=== PATIENT | male | born 1965 | race Caucasian/White ===

== ENCOUNTER 2020-10-30 17:53 | Outpatient (CLI) | payer OTHER | END 2020-10-30 17:54 | disposition critical access hospital (66) | LOC: EMS 17:53 | DX: R56.9 Unspecified convulsions (principal) | CPT/HCPCS: A0425; A0429 ==

== ENCOUNTER 2020-10-30 18:12 | Emergency (ER) | payer OTHER ==
[2020-10-30 19:01] LABS: BASOPHILS % (AUTO) 0.6 %; EOSINOPHILS % (AUTO) 0.6 %; HCT - HEMATOCRIT 38.6 % (42.0-52.0); HGB - HEMOGLOBIN 12.8 g/dL (14.0-18.0); LYMPHOCYTES # (AUTO) 1.4 10^3/uL (1.5-3.5); LYMPHOCYTES % (AUTO) 20.4 %; MEAN CORPUSCULAR HEMOGLOBIN 33.1 pg (27.0-31.0); MEAN CORPUSCULAR HGB CONC 33.2 g/dL (32.0-36.0); MEAN CORPUSCULAR VOLUME 99.7 fL (80.0-94.0); MONOCYTES # (AUTO) 0.7 10^3/uL (0.0-1.0); MONOCYTES % (AUTO) 10.1 %; NEUTROPHILS # (AUTO) 4.5 10^3/uL (1.5-6.6); PLT - PLATELET COUNT 233 10^3/uL (130-450); RED BLOOD COUNT 3.87 10^6/uL (4.70-6.10); RED CELL DISTRIBUTION WIDTH 12.3 % (12.0-15.0); WHITE BLOOD COUNT 6.7 x10^3/uL (4.8-10.8)
--- NOTE | 2020-10-30 19:13 | ED Physician Documentation ---
History of Present Illness - Stated complaint Stated Complaint: SZ - Chief complaint Chief Complaint: Neuro - History obtained from History obtained from: Patient, Family, EMS - History of Present Illness Timing: Today Pain level max: 0 Pain level now: 0 - Additonal information Additional information: 55-year-old male presents to the emergency department with his family after having a seizure today. Lasted 1 to 2 minutes. He was confused for about 20 minutes after the event. Does have a longstanding history of alcoholism, last drink was over 24 hours ago. Has not had seizures before. No recent trauma. Nothing makes it better or worse. Currently feels normal. Review of Systems Ten Systems: 10 systems reviewed and negative Constitutional: denies: Fever, Chills Ears: denies: Ear pain Nose: denies: Rhinorrhea / runny nose, Congestion Respiratory: denies: Cough, Wheezing GI: denies: Nausea, Vomiting, Diarrhea Skin: denies: Rash Musculoskeletal: denies: Neck pain, Back pain Neurologic: reports: Seizure. denies: Focal weakness, Numbness, Headache, Head injury, LOC PD PAST MEDICAL HISTORY - Past Medical History Cardiovascular: Hypertension Respiratory: None Neuro: None Endocrine/Autoimmune: None GI: GERD : None HEENT: Chronic vision loss Psych: None Derm: None - Past Surgical History Past Surgical History: No - Present Medications Home Medications: Ambulatory Orders Medication Instructions Recorded Confirmed No Known Home Medications 10/30/20 10/30/20 - Allergies Allergies/Adverse Reactions: Allergies Allergy/AdvReac Type Severity Reaction Status Date / Time penicillin G Allergy Unknown Verified 10/30/20 18:22 Sulfa (Sulfonamide Allergy Unknown Verified 10/30/20 18:22 Antibiotics) - Social History Does the pt smoke?: No Smoking Status: Never smoker PD ED PE NORMAL - Vitals Vital signs reviewed: Yes - General General: Alert and oriented X 3, No acute distress, Well developed/nourished - HEENT HEENT: Atraumatic, PERRL, EOMI, Ears normal, Moist mucous membranes, Pharynx benign, Dentition benign, Other (No tongue biting no lacerations) - Neck Neck: Supple, no meningeal sign, No bony TTP - Cardiac Cardiac: RRR, Strong equal pulses - Respiratory Respiratory: No respiratory distress, Clear bilaterally - Abdomen Abdomen: Soft, Non tender, Non distended - Back Back: No spinal TTP - Derm Derm: Warm and dry - Extremities Extremities: Normal ROM s pain, No edema, No calf tenderness / cord - Neuro Neuro: Alert and oriented X 3, 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7 Eos # (Auto) 0.0 Baso # (Auto) 0.0 Absolute Nucleated RBC 0.00 Nucleated RBC % 0.0 Sodium 134 L Potassium 3.5 Chloride 97 L Carbon Dioxide 26 Anion Gap 11.0 BUN 22 H Creatinine 0.9 Estimated GFR (MDRD) 88 L Glucose 114 H Calcium 9.3 Total Bilirubin 0.6 AST 39 ALT 36 Alkaline Phosphatase 44 Total Protein 7.2 Albumin 4.3 Globulin 2.9 Albumin/Globulin Ratio 1.5 Lipase 25 TSH 3.38 Urine Color Urine Clarity Urine pH Ur Specific Neche Urine Protein Urine Glucose (UA) Urine Ketones Urine Occult Blood Urine Nitrite Urine Bilirubin Urine Urobilinogen Ur Leukocyte Esterase Ur Microscopic Review Urine Culture Comments Salicylates < 6.0 Urine Opiates Screen Ur Oxycodone Screen Urine Methadone Screen Ur Propoxyphene Screen Acetaminophen < 10 L Ur Barbiturates Screen Ur Tricyclics Screen Ur Phencyclidine Scrn Ur Amphetamine Screen U Methamphetamines Scrn U Benzodiazepines Scrn Urine Cocaine Screen U Cannabinoids Screen Ethyl Alcohol < 5.0 10/30/20 19:21 WBC RBC Hgb Hct MCV MCH MCHC RDW Plt Count MPV Neut # (Auto) Lymph # (Auto) Letcher # (Auto) Eos # (Auto) Baso # (Auto) Absolute Nucleated RBC Nucleated RBC % Sodium Potassium Chloride Carbon Dioxide Anion Gap BUN Creatinine Estimated GFR (MDRD) Glucose Calcium Total Bilirubin AST ALT Alkaline Phosphatase Total Protein Albumin Globulin Albumin/Globulin Ratio Lipase TSH Urine Color YELLOW Urine Clarity CLEAR Urine pH 6.5 Ur Specific Neche 1.020 Urine Protein TRACE Urine Glucose (UA) NEGATIVE Urine Ketones NEGATIVE Urine Occult Blood NEGATIVE Urine Nitrite NEGATIVE Urine Bilirubin NEGATIVE Urine Urobilinogen 0.2 (NORMAL) Ur Leukocyte Esterase NEGATIVE Ur Microscopic Review NOT INDICATED Urine Culture Comments NOT INDICATED Salicylates Urine Opiates Screen NEGATIVE Ur Oxycodone Screen NEGATIVE Urine Methadone Screen NEGATIVE Ur Propoxyphene Screen NEGATIVE Acetaminophen Ur Barbiturates Screen NEGATIVE Ur Tricyclics Screen NEGATIVE Ur Phencyclidine Scrn NEGATIVE Ur Amphetamine Screen NEGATIVE U Methamphetamines Scrn NEGATIVE U Benzodiazepines Scrn NEGATIVE Urine Cocaine Screen NEGATIVE U Cannabinoids Screen NEGATIVE Ethyl Alcohol - Rads (name of study) Head CT Radiology: Prelim report reviewed, EMP read contemporaneously, See rad report (No acute intracranial abnormality) PD MEDICAL DECISION MAKING - ED course Complexity details: reviewed results, re-evaluated patient, considered differential, d/w patient, d/w family ED course: 55-year-old male with a seizure today. Possible alcohol withdrawal related? No acute findings on laboratory testing, EKG or head CT. Recommend that he follow- up with his doctor for MRI and EEG. Patient does not have any injuries today. Patient and family counseled regarding signs and symptoms for which I believe and urgent re-evaluation would be necessary. Patient with good understanding of and agreement to plan and is comfortable going home at this time This document was made in part using voice recognition software. While efforts are made to proofread this document, sound alike and grammatical errors may occur. Departure - Departure Disposition: 01 Home, Self Care Clinical Impression: Seizure Condition: Good Instructions: ED Seizure New Onset Unk Cause Follow-Up: your,doctor in 1 week [Other] Comments: You should follow-up with your doctor next week for further care. This could be an alcohol withdrawal seizure. Please return if he worsens. He should have an MRI with his doctor next week as well as an EEG. Do not drive or operate heavy machinery until cleared by your doctor. You should also avoid swimming pools and baths. Discharge Date/Time: 10/30/20 20:33
--- NOTE | 2020-10-30 19:16 | CT Report ---
PROCEDURE: HEAD WO INDICATIONS: new onset seizure TECHNIQUE: Noncontrast 4.5 mm thick angled axial sections acquired from the foramen magnum to the vertex. For r adiation dose reduction, the following was used: automated exposure control, adjustment of mA and/or kV according to patient size. COMPARISON: None. FINDINGS: Image quality: Excellent. CSF spaces: Basal cisterns are patent. No extra-axial fluid collections. Ventricles are normal in size and shape. Brain: No midline shift. No intracranial masses or hemorrhage. Leonard-white matter interface is norm al. Skull and face: Calvarium and visualized facial bones are intact, without suspicious lesions. Sinuses: Visualized sinuses and mastoids are clear. IMPRESSION: No acute intracranial disease process. Reviewed by: Samantha Matthew MD, PhD on 10/30/2020 7:15 PM PDT Approved by: Samantha Matthew MD, PhD on 10/30/2020 7:15 PM PDT Station ID: [id number]
[2020-10-30 19:19] LABS: ACETAMINOPHEN < 10 ug/mL (10-30); ALBUMIN 4.3 g/dL (3.2-5.5); ALBUMIN/GLOBULIN RATIO 1.5 (1.0-2.2); ALKALINE PHOSPHATASE 44 IU/L (42-121); ALT ALANINE AMINOTRANSFERASE 36 IU/L (10-60); AST ASPARTATE AMINOTRANSFERASE 39 IU/L (10-42); BILIRUBIN,TOTAL 0.6 mg/dL (0.2-1.0); BUN - BLOOD UREA NITROGEN 22 mg/dL (6-20); CALCIUM 9.3 mg/dL (8.5-10.3); CARBON DIOXIDE - CO2 26 mmol/L (21-32); CHLORIDE 97 mmol/L (101-111); CREATININE 0.9 mg/dL (0.6-1.2); ETOH - ETHANOL < 5.0 mg/dL; GFR - MDRD 88 (>89); GLUCOSE 114 mg/dL (70-100); LIPASE 25 U/L (22-51); POTASSIUM 3.5 mmol/L (3.5-5.0); SALICYLATE < 6.0 mg/dL; SODIUM 134 mmol/L (135-145); TOTAL PROTEIN 7.2 g/dL (6.7-8.2)
[2020-10-30 19:28] LABS: MUDS CUTOFF CONCENTRATIONS CUTOFF CONC BELOW:
[2020-10-30 19:32] LABS: BILIRUBIN,URINE NEGATIVE (NEGATIVE); GLUCOSE, URINE (UA) NEGATIVE (NEGATIVE); KETONES,URINE (UA) NEGATIVE (NEGATIVE); LEUKOCYTE ESTERASE, URINE NEGATIVE (NEGATIVE); NITRITE,URINE NEGATIVE (NEGATIVE); OCCULT BLOOD,URINE NEGATIVE (NEGATIVE); PH,URINE 6.5 PH (5.0-7.5); PROTEIN,URINE TRACE mg/dL (NEGATIVE); UROBILINOGEN,URINE 0.2 (NORMAL) E.U./dL (NORMAL)
[2020-10-30 19:34] LABS: CLARITY,URINE CLEAR (CLEAR)
[2020-10-30 19:49] LABS: AMPHETAMINE SCREEN,URINE NEGATIVE (NEGATIVE); BARBITURATE SCREEN,UR NEGATIVE (NEGATIVE); BENZODIAZEPINES SCREEN, URINE NEGATIVE (NEGATIVE); COCAINE SCREEN URINE NEGATIVE (NEGATIVE); METHADONE SCREEN, URINE NEGATIVE (NEGATIVE); METHAMPHETAMINES SCREEN, URINE NEGATIVE (NEGATIVE); OPIATE SCREEN, URINE NEGATIVE (NEGATIVE); OXYCODONE SCREEN, URINE NEGATIVE (NEGATIVE); PROPOXYPHENE SCREEN, URINE NEGATIVE (NEGATIVE); THC CANNABINOID SCREEN, URINE NEGATIVE (NEGATIVE); TRICYCLIC ANTIDEPRESSANT,URINE NEGATIVE (NEGATIVE)
[2020-10-30 20:45] VITALS: BP 127/91
== END 2020-10-30 20:33 | disposition home or self-care (01) ==
LOC: EDUNIT# → ED 18:12
DX: R56.9 Unspecified convulsions (principal); S61.201A Unspecified open wound of left index finger without damage to nail, initial encounter; W29.8XXA Contact with other powered hand tools and household machinery, initial encounter; I10 Essential (primary) hypertension
CPT/HCPCS: 36415; 70450; 80053; 80306; 80307; 80320; 80329; 81003; 83690; 84443; 85025; 93005; 99282; 99284; A9270; 81001; 87086

== ENCOUNTER 2021-01-14 14:01 | Emergency (ER) | payer OTHER ==
[2021-01-14] MEDS ORDERED: BUFFERED LIDOCAINE 10 ML SYRINGE SUBQ STA (14:08)
[2021-01-14] MEDS ORDERED: TETANUS/DIPHTHERIA/PERTUSSIS 0.5 ML SYRINGE IM ONE (14:08)
--- NOTE | 2021-01-14 14:09 | ED Physician Documentation ---
PD HPI UPPER EXT INJURY - Stated complaint Stated Complaint: RT HAND INJURY - Chief complaint Chief Complaint: Laceration - History obtained from History obtained from: Patient (55-year-old gentleman was working on a compressor blade at home, it came to life and he has 2 lacerations on the dorsum of the right wrist. Tetanus status is unknown.) Review of Systems Constitutional: reports: Reviewed and negative Eyes: reports: Reviewed and negative Ears: reports: Reviewed and negative Nose: reports: Reviewed and negative PD PAST MEDICAL HISTORY - Past Medical History Cardiovascular: Hypertension Respiratory: None Neuro: None Endocrine/Autoimmune: None GI: GERD : None HEENT: Chronic vision loss Psych: None Derm: None - Past Surgical History Past Surgical History: No - Present Medications Home Medications: Ambulatory Orders Medication Instructions Recorded Confirmed No Known Home Medications 10/30/20 01/14/21 - Allergies Allergies/Adverse Reactions: Allergies Allergy/AdvReac Type Severity Reaction Status Date / Time penicillin G Allergy Unknown Verified 01/14/21 14:15 Sulfa (Sulfonamide Allergy Unknown Verified 01/14/21 14:15 Antibiotics) - Social History Does the pt smoke?: No Smoking Status: Current every day smoker Does the pt drink ETOH?: Yes Does the pt have substance abuse?: No - Immunizations Immunizations are current?: Yes PD ED PE NORMAL - Vitals Vital signs reviewed: Yes - General General: Alert and oriented X 3, No acute distress - Extremities Extremities: Other (There are 2 linear somewhat stellate lacerations in the subcutaneous tissue on the dorsum of the left wrist. Extensor tendon strength and sensation is intact in all the digits.) - Neuro Neuro: Alert and oriented X 3, Normal speech Results - Vitals Vitals: Vital Signs - 24 hr 01/14/21 01/14/21 14:05 14:43 Temperature 36.8 C 36.3 C L Heart Rate 81 80 Respiratory 16 16 Rate Blood Pressure 120/89 H 110/69 O2 Saturation 99 98 Oxygen O2 Source Room air Procedures - Laceration (location) R hand Length in cm: 5 Wound type: Into subcut fat Neurovascular status: Sensory intact, Motor intact, Vascular intact Anesthesia: Lidocaine 1% Wound preparation: Hibiclens, Irrigated copiously NS Skin layer closure: Nylon, Interrupted, Size #-0 - enter number (4-0), Sutures - enter # (11) Other: Tetanus UTD (He initially wasn't sure if he was up-to-date on tetanus, so tetanus was ordered. His came in the room and told us that he was current.) Departure - Departure Disposition: 01 Home, Self Care Clinical Impression: Laceration Condition: Good Record reviewed to determine appropriate education?: Yes Instructions: ED Laceration Hand Comments: Come back for any signs of infection which would include: Redness, swelling, drainage, increased pain, or fevers. You can wash it soap and water. Keep it covered and moist with bacitracin ointment which is available over the counter; avoid neosporin. Follow-up with your physician in 10-14 days for suture removal. Discharge Date/Time: 01/14/21 14:49
[2021-01-14 14:45] VITALS: BP 110/69
== END 2021-01-14 14:49 | disposition home or self-care (01) ==
LOC: ED 14:01
DX: S61.511A Laceration without foreign body of right wrist, initial encounter (principal); W26.8XXA Contact with other sharp object(s), not elsewhere classified, initial encounter; Y93.H3 Activity, building and construction; Y92.009 Unspecified place in unspecified non-institutional (private) residence as the place of occurrence of the external cause; I10 Essential (primary) hypertension; F17.200 Nicotine dependence, unspecified, uncomplicated
CPT/HCPCS: 12002; 99281; 99282

== ENCOUNTER 2021-06-13 13:11 | Outpatient (CLI) | payer OTHER | END 2021-06-13 13:12 | disposition critical access hospital (66) | LOC: EMS 13:11 | DX: S09.90XA Unspecified injury of head, initial encounter (principal); W19.XXXA Unspecified fall, initial encounter; R56.9 Unspecified convulsions | CPT/HCPCS: A0425; A0429 ==

== ENCOUNTER 2021-06-13 13:27 | Emergency (ER) | payer OTHER ==
[2021-06-13] MEDS ORDERED: THIAMINE INJ 100 MG, MAGNESIUM SULFATE 2 GM, MULTIVITAMIN 10 ML, FOLIC ACID INJ 1 MG in... IV ONE ×5 (13:38)
[2021-06-13] MEDS ORDERED: BUFFERED LIDOCAINE 10 ML SYRINGE SUBQ STA (13:39)
--- NOTE | 2021-06-13 13:41 | ED Physician Documentation ---
PD HPI SEIZURE - Stated complaint Stated Complaint: SZ - History obtained from History obtained from: Patient, EMS - History of Present Illness Timing - onset: Today Witnessed: Witnessed Number of seizures: Single, Lasted minutes Description of seizure activity: Generalized Injury during seizure: Fell, Head injury Associated symptoms: None History of seizures: Prior EtOH wdrawal sz Contributing factors: EtOH withdrawal Similar symptoms before: No diagnosis Recently seen: Not recently seen - Additional information Additional information: 56-year-old male who drinks regularly cut down his alcohol consumption and today while he was at work he had an episode of stiffening up and tipped over he did strike his head and he was witnessed by his coworkers to be having a tonic- clonic seizure. They thought felt that this lasted as long as 3 to 4 minutes. The patient was postictal when he came to and when medics arrived he had amnesia for the event. He indicates that he has previously drank quite heavily he had a similar episode in November of this year he believes again at that time he had cut out alcohol cold turkey. He does not have a prior history of seizure disorder he does not have a family history of epilepsy. Review of Systems Constitutional: denies: Fever Eyes: denies: Decreased vision Ears: denies: Ear pain Nose: denies: Rhinorrhea / runny nose, Congestion Throat: denies: Sore throat Cardiac: denies: Chest pain / pressure, Palpitations Respiratory: denies: Dyspnea, Cough GI: denies: Abdominal Pain, Nausea, Vomiting, Constipation, Diarrhea : denies: Dysuria, Frequency Neurologic: reports: Seizure, Head injury. denies: Generalized weakness, Focal weakness, Numbness, Difficulty speaking, Headache PD PAST MEDICAL HISTORY - Past Medical History Cardiovascular: Hypertension Respiratory: None Neuro: None Endocrine/Autoimmune: None GI: GERD : None HEENT: Chronic vision loss Psych: None Derm: None - Past Surgical History Past Surgical History: No - Present Medications Home Medications: Ambulatory Orders Medication Instructions Recorded Confirmed No Known Home Medications 10/30/20 01/14/21 - Allergies Allergies/Adverse Reactions: Allergies Allergy/AdvReac Type Severity Reaction Status Date / Time penicillin G Allergy Unknown Verified 06/13/21 13:42 Sulfa (Sulfonamide Allergy Unknown Verified 06/13/21 13:42 Antibiotics) - Social History Does the pt smoke?: No Smoking Status: Current every day smoker Does the pt drink ETOH?: Yes Does the pt have substance abuse?: No - Immunizations Immunizations are current?: Yes PD ED PE NORMAL - Vitals Vital signs reviewed: Yes (Hypertensive) - General General: Alert and oriented X 3, No acute distress, Well developed/nourished - HEENT HEENT: PERRL, EOMI, Other (There is a 3-1/2 cm laceration to the right parietal occipital scalp. 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, No motor deficit, No sensory deficit, Normal speech Eye Opening: Spontaneous Motor: Obeys Commands Verbal: Oriented GCS Score: 15 - Psych Psych: Normal mood, Normal affect Results - Vitals Vitals: Vital Signs - 24 hr 06/13/21 06/13/21 06/13/21 13:38 14:00 14:30 Temperature 36.6 C Heart Rate 91 94 89 Respiratory 16 21 20 Rate Blood Pressure 122/89 H 122/81 H 123/78 O2 Saturation 94 93 94 Oxygen O2 Source Room air - Labs Labs: Laboratory Tests 06/13/21 06/13/21 06/13/21 13:47 13:47 13:47 WBC 6.9 RBC 3.89 L Hgb 12.6 L Hct 38.4 L MCV 98.7 H MCH 32.4 H MCHC 32.8 RDW 12.1 Plt Count 202 MPV 9.6 Neut # (Auto) 5.1 Lymph # (Auto) 1.2 L Payne # (Auto) 0.5 Eos # (Auto) 0.0 Baso # (Auto) 0.0 Absolute Nucleated RBC 0.00 Nucleated RBC % 0.0 Sodium 135 Potassium 3.6 Chloride 96 L Carbon Dioxide 25 Anion Gap 14.0 H BUN 14 Creatinine 1.0 Estimated GFR (MDRD) 78 L Glucose 91 Lactic Acid 4.6 H* Calcium 8.9 Total Bilirubin 1.0 AST 32 ALT 23 Alkaline Phosphatase 48 Total Protein 7.0 Albumin 4.1 Globulin 2.9 Albumin/Globulin Ratio 1.4 Lipase 23 Ethyl Alcohol < 5.0 - Rads (name of study) CT head Radiology: Prelim report reviewed (Impression: No acute intracranial finding.), EMP read indepedently, See rad report Procedures - Laceration (location) Scalp Length in cm: 3.5 Wound type: Linear, Irregular, Into subcut fat, Clean Neurovascular status: Sensory intact, Motor intact, Vascular intact Anesthesia: Lidocaine 1% Wound preparation: Hibiclens, Irrigated copiously NS, Wound explored, To the base Skin layer closure: Hayley Other: Patient tolerated well, No complications, Neurovascular intact, Dressing applied, Tetanus UTD PD MEDICAL DECISION MAKING - ED course Complexity details: reviewed old records, reviewed results, re-evaluated patient, considered differential, d/w patient ED course: 56-year-old male normally drinks heavy has decreased his alcohol consumption and has had a alcohol withdrawal seizure. I have asked patient to follow-up with his primary at the [facility] and inquire about EEG and MRI of the brain. He is administered IV banana bag and his scalp laceration is repaired with hayley. Departure - Departure Disposition: 01 Home, Self Care Clinical Impression: Alcohol withdrawal seizure Qualifiers: Complication of substance-induced condition: uncomplicated Qualified Code(s): F10.230 - Alcohol dependence with withdrawal, uncomplicated; R56.9 - Unspecified convulsions Scalp laceration Qualifiers: Encounter type: initial encounter Qualified Code(s): S01.01XA - Laceration without foreign body of scalp, initial encounter Condition: Stable Instructions: ED Laceration Scalp Stitch Or Stap, ED Seizure Alcohol Withdrawal, ED Withdrawal Alcohol Follow-Up: Your, doctor at the [facility] [Other] Comments: Lalo, today it looks like you had an alcohol withdrawal seizure. Abstain from alcohol and follow-up with a neurologist at the [facility] as previously planned. You will likely need MRI and EEG of the brain. In the meantime observe seizure precautions no bathing alone no swimming alone no going up on ladders or roofs and no driving.
[2021-06-13 13:56] LABS: BASOPHILS % (AUTO) 0.4 %; EOSINOPHILS % (AUTO) 0.6 %; HCT - HEMATOCRIT 38.4 % (42.0-52.0); HGB - HEMOGLOBIN 12.6 g/dL (14.0-18.0); LYMPHOCYTES # (AUTO) 1.2 10^3/uL (1.5-3.5); LYMPHOCYTES % (AUTO) 17.6 %; MEAN CORPUSCULAR HEMOGLOBIN 32.4 pg (27.0-31.0); MEAN CORPUSCULAR HGB CONC 32.8 g/dL (32.0-36.0); MEAN CORPUSCULAR VOLUME 98.7 fL (80.0-94.0); MEAN PLATELET VOLUME 9.6 fL (7.4-11.4); MONOCYTES # (AUTO) 0.5 10^3/uL (0.0-1.0); MONOCYTES % (AUTO) 7.2 %; NEUTROPHILS # (AUTO) 5.1 10^3/uL (1.5-6.6); NEUTROPHILS % (AUTO) 73.9 %; PLT - PLATELET COUNT 202 10^3/uL (130-450); RED BLOOD COUNT 3.89 10^6/uL (4.70-6.10); RED CELL DISTRIBUTION WIDTH 12.1 % (12.0-15.0); WHITE BLOOD COUNT 6.9 x10^3/uL (4.8-10.8)
[2021-06-13 14:15] LABS: ALBUMIN 4.1 g/dL (3.2-5.5); ALBUMIN/GLOBULIN RATIO 1.4 (1.0-2.2); ALKALINE PHOSPHATASE 48 IU/L (42-121); ALT ALANINE AMINOTRANSFERASE 23 IU/L (10-60); AST ASPARTATE AMINOTRANSFERASE 32 IU/L (10-42); BUN - BLOOD UREA NITROGEN 14 mg/dL (6-20); CALCIUM 8.9 mg/dL (8.5-10.3); CARBON DIOXIDE - CO2 25 mmol/L (21-32); CHLORIDE 96 mmol/L (101-111); ETOH - ETHANOL < 5.0 mg/dL; GFR - MDRD 78 (>89); GLUCOSE 91 mg/dL (70-100); LIPASE 23 U/L (22-51); POTASSIUM 3.6 mmol/L (3.5-5.0); SODIUM 135 mmol/L (135-145)
[2021-06-13] MEDS ORDERED: LIDOCAINE 1% 2 ML VIAL TD STA (14:23)
[2021-06-13] MEDS ORDERED: lidocaine 1% 20 ML MDV SUBQ ONE (14:58)
--- NOTE | 2021-06-13 15:11 | CT Report ---
PROCEDURE: HEAD WO INDICATIONS: Seizure, head injury TECHNIQUE: Noncontrast 4.5 mm thick angled axial sections acquired from the foramen magnum to the vertex. For r adiation dose reduction, the following was used: automated exposure control, adjustment of mA and/or kV according to patient size. COMPARISON: 10/30/[address] FINDINGS: Image quality: Excellent. CSF spaces: Basal cisterns are patent. No extra-axial fluid collections. Ventricles are normal in size and shape. Brain: No midline shift. No intracranial masses or hemorrhage. Leonard-white matter interface is norm al. Skull and face: Calvarium and visualized facial bones are intact, without suspicious lesions. Sinuses: Visualized sinuses and mastoids are clear. IMPRESSION: No acute intracranial finding. Reviewed by: Christiano Villalpando MD on 06/13/2021 2:10 PM [facility] Approved by: Christiano Villalpando MD on 06/13/2021 2:10 PM [facility] Station ID: [id number]
[2021-06-13 15:34] VITALS: BP 137/93
== END 2021-06-13 15:54 | disposition home or self-care (01) ==
LOC: EDUNIT# → ED 13:27
DX: S01.01XA Laceration without foreign body of scalp, initial encounter (principal); W18.30XA Fall on same level, unspecified, initial encounter; F10.230 Alcohol dependence with withdrawal, uncomplicated; I10 Essential (primary) hypertension; R56.9 Unspecified convulsions; F17.200 Nicotine dependence, unspecified, uncomplicated; Y90.0 Blood alcohol level of less than 20 mg/100 ml
CPT/HCPCS: 12002; 36415; 70450; 80053; 80320; 83605; 83690; 85025; 96365; 96366; 99284; J3411